=== PATIENT | female | born 1930 | race Caucasian/White ===

== ENCOUNTER 2016-06-27 06:14 | Day surgery (SDC) | payer MEDICARE, BC ==
[2016-06-27] MEDS ORDERED: Lactated Ringers 1,000 ML IV SCH (06:15)
[2016-06-27] MEDS ORDERED: Gatifloxacin 0.5% Ophth Soln 2.5 ML Bot EYERT SCH (06:15)
[2016-06-27] MEDS ORDERED: Sodium Chloride 0.9% 5 ML Syringe FLUSH PRN (06:15)
[2016-06-27] MEDS: Cyclopentolate 1% Opth Soln 2 ML Bottle EYERT SCH ×3 (06:36→07:07)
[2016-06-27] MEDS: Phenylephrine 10% Ophth Soln 5 ML Bot EYERT SCH ×3 (06:41→07:12)
[2016-06-27] MEDS ORDERED: Balanced Salt Solution Ophth Irrig 15 ML Bottle EYERT ONE (08:24)
[2016-06-27] MEDS ORDERED: Water For Irrigation,Sterile 1,500 ML Container ONE (08:24)
[2016-06-27] MEDS ORDERED: Balanced Salt Solution Plus Ophth Irrig 500 ML Bottle IOCULAR ONE (08:24)
[2016-06-27] MEDS ORDERED: Dexamethasone/Neomycin/Polymyxin B Ophth Oint 3.5 GM Tube EYERT ONE (08:25)
[2016-06-27] MEDS ORDERED: Carbachol 0.01% Intraocular 1.5 ML Vial EYERT ONE (08:25)
[2016-06-27] MEDS ORDERED: Tetracaine 0.5% 2 ML Bottle EYERT ONE (08:25)
[2016-06-27] MEDS ORDERED: EPINEPHrine 1:1000 1 MG/ML SDV ONE (08:25)
[2016-06-27] MEDS ORDERED: Lidocaine 2% with EPINEPHrine 1:100,000 20 ML MDV INJECT ONE ×2 (08:25)
[2016-06-27] MEDS ORDERED: Lidocaine 1% 10 ML MDV INJECT ONE ×2 (08:26)
[2016-06-27] MEDS ORDERED: Hyaluronate Sodium 1% 0.85 ML Syringe IOCULAR ONE ×2 (08:27)
[2016-06-27 08:56] VITALS: BP 148/60
--- NOTE | 2016-06-27 13:14 | PROC ---
DATE OF PROCEDURE: PHYSICIAN: Shawn Joshi MD PRE-PROCEDURE DIAGNOSIS: Cataract, right eye. POST-PROCEDURE DIAGNOSIS: Cataract, right eye. PROCEDURE PERFORMED: Phacoemulsification with posterior chamber lens insertion, right eye. FINDINGS: The patient was taken to the operating room where appropriate anesthesia, sedation and monitoring were provided. A retrobulbar block was given on the right side. The eye was massaged and was found to be appropriately soft. The eye and eyelids were then prepped and draped in the usual sterile manner. A lid speculum was placed. A micro sharp blade was used to enter the anterior chamber inside the limbus superior-temporally. Xylocaine was irrigated into the eye at this site. Healon was irrigated into the eye through this site. Then using a 2.85 mm corneal blade an entry was made into the anterior chamber just inside the limbus temporally. Healon was again irrigated into the eye. Then using a cystitome, the anterior capsulorrhexis was created. The lens nucleus was hydrodissected using a 27 gauge cannula and balanced salt solution. The phacoemulsification unit was introduced through the temporal site and the Horace spatula through the superior temporal site. In so doing, the lens nucleus was phacoemulsified. The cortical fragments of the lens were removed using the irrigation aspiration unit. The posterior capsule was polished. Healon was irrigated into the eye. The posterior chamber lens was inserted and rotated into position inside the capsular bag. The Healon was irrigated out of the eye. Miostat was irrigated into the eye and the pupil rounded nicely. A single interrupted 10-0 Nylon suture was placed through the temporal corneal incision site. Balanced salt solution was irrigated into the eye. The wound was tested and found to be tight. Maxitrol ointment was placed into the patient's right eye. The eyelids were closed and an eye patch and garrido shield were placed. The patient left the operating room in good condition. /[id number]/MODL
== END 2016-06-27 09:10 | disposition home or self-care (01) ==
LOC: KA.SDS 06:14
PROVIDERS: ATTEND Ophthalmology
DX: H26.9 Unspecified cataract (principal); I25.10 Atherosclerotic heart disease of native coronary artery without angina pectoris; I10 Essential (primary) hypertension; E78.00 Pure hypercholesterolemia, unspecified; Z88.8 Allergy status to other drugs, medicaments and biological substances; Z90.49 Acquired absence of other specified parts of digestive tract; Z95.1 Presence of aortocoronary bypass graft; Z79.899 Other long term (current) drug therapy; Z95.0 Presence of cardiac pacemaker
CPT/HCPCS: 36416; 66984; 85610; A9270; C1780; J0171; J7120; 00142; 36415

== ENCOUNTER 2016-07-25 06:47 | Day surgery (SDC) | payer MEDICARE, BC ==
[~2016-07-25 06:47] MED LIST: Lactated Ringers 1,000 ML IV SCH
[2016-07-25] MEDS ORDERED: Gatifloxacin 0.5% Ophth Soln 2.5 ML Bot EYELF SCH (06:55)
[2016-07-25] MEDS ORDERED: Sodium Chloride 0.9% 5 ML Syringe FLUSH PRN (06:55)
[2016-07-25] MEDS ORDERED: Gatifloxacin 0.5% Ophth Soln 2.5 ML Bot EYELF ONE (06:55)
[2016-07-25] MEDS: Cyclopentolate 1% Opth Soln 2 ML Bottle EYELF SCH ×3 (07:19→07:52)
[2016-07-25] MEDS: Phenylephrine 10% Ophth Soln 5 ML Bot EYELF SCH ×3 (07:30→08:04)
[2016-07-25] MEDS ORDERED: Lactated Ringers 1,000 ML IV SCH (08:00)
[2016-07-25] MEDS ORDERED: Balanced Salt Solution Plus Ophth Irrig 500 ML Bottle IOCULAR ONE (09:06)
[2016-07-25] MEDS ORDERED: Water For Irrigation,Sterile 1,500 ML Container IRR ONE (09:06)
[2016-07-25] MEDS ORDERED: Tetracaine 0.5% 2 ML Bottle EYEBOTH ONE (09:06)
[2016-07-25] MEDS ORDERED: Balanced Salt Solution Ophth Irrig 15 ML Bottle EYELF ONE (09:06)
[2016-07-25] MEDS ORDERED: EPINEPHrine 1:1000 1 MG/ML SDV ONE (09:07)
[2016-07-25] MEDS ORDERED: Dexamethasone/Neomycin/Polymyxin B Ophth Oint 3.5 GM Tube EYELF ONE (09:07)
[2016-07-25] MEDS ORDERED: Carbachol 0.01% Intraocular 1.5 ML Vial EYELF ONE (09:07)
[2016-07-25] MEDS ORDERED: Lidocaine 2% with EPINEPHrine 1:100,000 20 ML MDV INJECT ONE (09:07)
[2016-07-25] MEDS ORDERED: Hyaluronate Sodium 1% 0.85 ML Syringe IOCULAR ONE ×2 (09:08)
[2016-07-25] MEDS ORDERED: Lidocaine 1% 10 ML MDV INJECT ONE (09:08)
[2016-07-25 09:57] VITALS: BP 152/87
--- NOTE | 2016-07-26 08:37 | OR ---
DATE OF SURGERY: 07/25/2016 SURGEON: Shawn Joshi MD PREOPERATIVE DIAGNOSIS: Cataract, left eye. POSTOPERATIVE DIAGNOSIS: Cataract, left eye. OPERATION PERFORMED: Phacoemulsification with posterior chamber lens insertion, left eye. FINDINGS: The patient was taken to the operating room where appropriate anesthesia, sedation and monitoring were provided. A retrobulbar block was given on the left side. The eye was massaged and was found to be appropriately soft. The eye and eyelids were then prepped and draped in the usual sterile manner. A lid speculum was placed. A micro sharp blade was used to enter the anterior chamber inside the limbus inferior-temporally. Xylocaine was irrigated into the eye at this site. Healon was irrigated into the eye through this site. Then using a 2.85 mm corneal blade an entry was made into the anterior chamber just inside the limbus temporally. Healon was again irrigated into the eye. Then using a cystitome, the anterior capsulorrhexis was created. The lens nucleus was hydrodissected using a 27 gauge cannula and balanced salt solution. The phacoemulsification unit was introduced through the temporal site and the Horace spatula through the inferior temporal site. In so doing, the lens nucleus was phacoemulsified. The cortical fragments of the lens were removed using the irrigation aspiration unit. Healon was irrigated into the eye and then the posterior capsule was polished and it was noted to be intact. The posterior chamber lens was inserted and rotated into position in the sulcus where it centered nicely. The Healon was irrigated out of the eye. Miostat was irrigated into the eye and the pupil rounded nicely. A single interrupted 10-0 Nylon suture was placed through the temporal corneal incision site. Balanced salt solution was irrigated into the eye. The wound was tested and found to be appropriately tight. Maxitrol ointment was placed into the patient's eye. The eyelids were closed and an eye patch and garrido shield were placed. The patient left the operating room in good condition. /[id number]/MODL
== END 2016-07-25 10:08 | disposition home or self-care (01) ==
LOC: KA.SDS 06:47
PROVIDERS: ATTEND Ophthalmology
DX: H26.9 Unspecified cataract (principal); I48.2 Chronic atrial fibrillation; I48.92 Unspecified atrial flutter; I25.10 Atherosclerotic heart disease of native coronary artery without angina pectoris; E80.4 Gilbert syndrome; E78.00 Pure hypercholesterolemia, unspecified; I10 Essential (primary) hypertension; E03.9 Hypothyroidism, unspecified; Z90.49 Acquired absence of other specified parts of digestive tract; Z95.1 Presence of aortocoronary bypass graft; Z95.0 Presence of cardiac pacemaker; Z82.49 Family history of ischemic heart disease and other diseases of the circulatory system; Z88.8 Allergy status to other drugs, medicaments and biological substances; Z79.01 Long term (current) use of anticoagulants
CPT/HCPCS: 00142; 36416; 66984; 85610; A9270; C1780; J0171; J7120; 93005